=== PATIENT | male | born 1965 | race Two or more races ===

== ENCOUNTER 2019-04-13 15:18 | Inpatient (IN) | payer OTHER ==
[~2019-04-13] VITALS: Ht 175.3 cm; Wt 63.5 kg
[2019-04-25] MEDS ORDERED: INTESTINEX680 M1 PO (14:04)
[2019-04-25] MEDS ORDERED: INTEGRA PLUS C1 EACH PO (14:04)
[2019-04-25] MEDS ORDERED: OXYC1TAB9 PO (14:04)
== END 2019-04-25 14:40 | disposition home or self-care (01) | DRG 330 ==
LOC: SURG 04-18 07:06 → O/R 04-18 07:06 → SURH 04-18 10:41 → SURG 04-18 15:50
PROVIDERS: ADMIT Surgery
PROC: 07BB4ZX Excision of Mesenteric Lymphatic, Percutaneous Endoscopic Approach, Diagnostic (ICD-10-PCS; 2019-04-18)
PROC: 0DTF4ZZ Resection of Right Large Intestine, Percutaneous Endoscopic Approach (ICD-10-PCS; principal; 2019-04-18 11:00)
PROC: 0DH67UZ Insertion of Feeding Device into Stomach, Via Natural or Artificial Opening (ICD-10-PCS; 2019-04-22)
PROC: 3E0G76Z Introduction of Nutritional Substance into Upper GI, Via Natural or Artificial Opening (ICD-10-PCS; 2019-04-22)
DX: C18.2 Malignant neoplasm of ascending colon (principal); K91.31 Postprocedural partial intestinal obstruction; E44.0 Moderate protein-calorie malnutrition; E83.42 Hypomagnesemia